=== PATIENT | female | born 1980 | race Caucasian/White ===

== ENCOUNTER 2020-10-03 21:22 | Emergency (ER) | payer MEDICAID, SELFPAY ==
[2020-10-03 21:25] VITALS: BP 131/89; PULSE 91; RESP 20; TEMP 37.1; O2SAT 97
--- NOTE | 2020-10-03 21:34 | ED.GENADUL_ITS ---
Discharge Plan Disposition Patient Disposition: OTHER Condition: Stable Discharge Details Clinical Impression: Anxiety Primary Care Provider: Samia Florence ED Provider: Foster Ernst Home Meds and New Rx's Prescriptions: No Action medroxyprogesterone [Depo-Provera] 150 MG/1 ML syringe 150 mg IM q 12 wks RF: 0 polyethylene glycol 3350 [Miralax] 527 GM powder 17 g PO DAILY Qty: 527 RF: 0 cholecalciferol (vitamin D3) [Vitamin D3] 400 UNIT tablet 400 unit PO DAILY RF: 0 adalimumab [Humira Pen Tymv-Hcvidq-Ccae HS] 40 MG/0.8 ML pen injector kit 40 mg SQ q other wk RF: 0 Medical Decision Making 40 yo female with hx of anxiety and depression comes in with Police after she was arrested and had a court order to be evaluated by mental health before going to a women's correction per PD. She arrives stable, crying but answering questions appropriately with clear speech and has normal gait. She denies any specific thoughts of self harm but states if she can't be with her she doesn't want to live anymore. Denies taking or attempting to harm herself. Denies thoughts of harming others and no visual or auditory hallucinations per history and on exam doesn't have any. No complaints of any physical pain, no fevers, no dyspnea, no focal neuro deficits, PERRL, CN II-XII intact. Do not feel she has underlying medical cause for her symptoms such as endocrine or infectious etiology will have mental health evaluate Charlene from mental health called and patient should not be here she was supposed to go to [facility] as we do not provide these mental health evaluations. Troopers are going to transport her to their facility for evaluation. I did speak with their ED and they are already expecting the patient and were notified before she arrived here. Differential Diagnosis Differential Diagnosis: anxiety, depression, situational anxiety HPI General Mode of arrival: ambulatory (with PD) . Date/Time Provider Initiated Documentation: 10/03/20 21:24 . Limitations to Documentation: no limitations . Information obtained by: patient . History of Present Illness 40 year old F presents to the emergency department with the chief complaint of anxious, Patient started experiencing this year(s) (2) and it has been constant. No relieving factors improve symptom(s), No exacerbating factors reported . Related Data Home Medications Medication Instructions Recorded Confirmed adalimumab [Humira Psoriasis] 40 mg SQ q other wk 02/07/15 cholecalciferol (vitamin D3) 400 unit PO DAILY 02/07/15 [Vitamin D3] medroxyprogesterone [Depo-Provera] 150 mg IM q 12 wks 02/07/15 polyethylene glycol 3350 [Miralax] 17 g PO DAILY #527 gm 02/07/15 Allergies Allergy/AdvReac Type Severity Reaction Status Date / Time acetaminophen [From Vicodin] Allergy vomiting Unverified 03/01/15 14:32 hydrocodone bitartrate Allergy vomiting Unverified 03/01/15 14:32 [From Vicodin] Latex, Natural Rubber Allergy rash Unverified 03/01/15 14:32 Review of Systems All systems reviewed & are unremarkable except as noted in HPI and below Constitutional Constitutional: Denies chills, Denies fever(s) and Denies weakness Cardiovascular Cardiovascular: Denies chest pain and Denies dyspnea Respiratory Respiratory: Denies cough and Denies dyspnea Gastrointestinal Gastrointestinal: Denies abdominal pain, Denies nausea and Denies vomiting Musculoskeletal Musculoskeletal: Denies joint swelling Neurologic Neurologic: Denies weakness [facility] Medical History (Updated 10/03/20 @ 22:05 by Foster Ernst MD) Adolescent depression Arm pain, left shoots down arm when lifts arm over head. no pain with passive ROM. Asthma CD (Crohn's disease) Dx 2010. Stable Chronic pelvic pain in female since age 17. s/p laparoscopies x2. Neg pelvic u/s and Abd CT 12/2014 Constipation Rx with Polyethylene Glycol Dry cough occurs when she lifts L arm over head. 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 2008 LGSIL. Other polyp of sinus Dx on CT of sinus - 2007 PID (acute pelvic inflammatory disease) 1999. Hx of + Chlamydia 04/[address] Not[address] on CT of abd 2014. Not symptomatic. Surgical History (Updated 03/12/18 @ 14:36 by [facility] [place]) bunionectomy 05/2011 Dr. Bailey Cholecystectomy 2008 Colonoscopy - IV Sedation 2008. Nl. Diagnostic Laproscopy 2000 2003 2010 EGD - IV Sedation Gastric ulcer. H Pylori 10/[address] Verduzco. Dx Chron's Family History Mother Mental disorder IBS (irritable bowel syndrome) Father Nephrolithiasis Sister Nephrolithiasis Asthma Maternal Aunt Personal history of malignant neoplasm Other Myocardial infarction Social History Smoking risk assessment performed?: No Exam Const General: anxious Orientation: alert HENMT Head: normal to inspection Ears: external ears normal General nose exam: external nose normal Mouth: moist mucous membranes Eyes General: appearance normal, both eyes and all related structures Neck Neck: normal visual inspection Resp Effort & Inspection: normal respiratory effort and able to speak in complete sentences Cardio Rate: regular rate Skin General skin exam: no rashes or lesions noted Neuro General: patient alert and patient oriented x3 Extrem General: normal to inspection Psych Speech and Movement: not agitated
[2020-10-03 22:04] LABS: Bilirubin Small (Negative); Blood Trace-intact (Negative); Clarity Cloudy (Clear); Glucose Negative (Negative); Ketones >=160 mg/dL (Negative); Leukocyte Esterase Trace (Negative); Nitrite Negative (Negative); Specific Gravity >= 1.030 (1.005-1.025); Urobilinogen 0.2 EU/dL (Up TO 0.2); pH 6.5 (5-8)
[2020-10-03 22:15] LABS: Bacteria Moderate HPF (Negative); C & S Indicated? No/Sq. Contamination; Epithelial Cells Many HPF (Negative)
[2020-10-03 22:17] LABS: *AMPHETAMINES SCREEN URINE Negative (Negative); *BARBITURATES SCREEN URINE Negative (Negative); *BENZODIAZEPINES SCREEN URINE Negative (Negative); Cannabinoids THC Positive (Negative); Cocaine Screen,Urine Negative (Negative); METHADONE URINE SCREEN Negative (Negative); OPIATES URINE SCREEN Negative (Negative)
[2020-10-03 22:18] LABS: Tricyclic Antidepressants Negative (Negative)
== END 2020-10-03 22:21 | disposition other institution (70) ==
PROVIDERS: Emergency Provider Emergency Medicine; PCP Nurse Practitioner Family
DX: F41.8 Other specified anxiety disorders (principal)
CPT/HCPCS: 80307; 81025; 99285; 81003; 81015; 99283

== ENCOUNTER 2023-10-05 10:47 | Emergency (ER) | payer MEDICAID, SELFPAY ==
[2023-10-05 10:49] VITALS: BP 144/129; PULSE 96; RESP 16; TEMP 36.7; O2SAT 100
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
--- NOTE | 2023-10-05 12:00 | DI.RAD_ITS ---
Exam(s) XR CHEST 2V PA LATERAL EXAM: XR CHEST 2V PA LATERAL CLINICAL HISTORY: Shortness of breath TECHNIQUE: 2D digital imaging was performed of the chest. Two images were obtained. PA and lateral views were obtained. COMPARISON: No exams were available for comparison FINDINGS: MEDIASTINUM: Normal. HEART: Normal. PULMONARY VASCULATURE: Normal. LUNGS: Clear. PLEURAL SPACE: No pleural effusion or pneumothorax. BONE:Within normal limits for the patient's age. There is a marked right convex thoracic scoliosis. OTHER FINDINGS:Normal. IMPRESSION: No acute pulmonary findings. DATA REPOSITORY: RADIATION DOSE DELIVERED:
[2023-10-05] MEDS: Acetaminophen 500 MG TAB 650 MG PO (12:20)
[2023-10-05] MEDS: Ibuprofen 400 MG TAB PO (12:21)
[2023-10-05] MEDS: Amoxicillin 875/Clav. 125 TAB PO (12:21)
[2023-10-05] MEDS: Benzonatate 100 MG CAP PO (12:21)
[2023-10-05 12:58] VITALS: BP 109/88; PULSE 66; RESP 16; O2SAT 100
--- NOTE | 2023-10-05 13:13 | DI.VRAD_ITS ---
PROCEDURE INFORMATION: Exam: XR Chest Exam date and time: 10/05/2023 12:45 PM Age: 43 years old Clinical indication: Cough TECHNIQUE: Imaging protocol: Radiologic exam of the chest. Views: 2 views. COMPARISON: No relevant prior studies available. FINDINGS: Lungs: Densities over mid to lower thorax bilaterally may be due to overlap, superimposed densities/tissues. No focal infiltrates seen of visualized portions of lungs. Pleural spaces: No pneumothorax and no pleural effusion seen of visualized portions thorax. Lower most portions of costophrenic angles not completely included on the PA view, left greater than right. Heart/Mediastinum: Heart size appears within normal. Bones/joints: Curvature, degenerative changes spine. Other findings: Linear densities project over abdomen on lateral view, partially included. IMPRESSION: No acute findings seen of visualized portions chest. Please see body of report. Dictated and Authenticated by: Lion Young MD. Ordering:JORGE L Lozano MD
[2023-10-05] MEDS: Lidocaine 5% Patch 1 PATCH TP (13:35)
== END 2023-10-05 13:37 | disposition home or self-care (01) ==
PROVIDERS: Emergency Provider Emergency Medicine; PCP Nurse Practitioner Family
DX: J01.90 Acute sinusitis, unspecified (principal)
CPT/HCPCS: 99283; 71046

== ENCOUNTER 2023-11-04 16:21 | Emergency (ER) | payer MEDICAID, SELFPAY ==
[2023-11-04 16:22] VITALS: BP 159/105; PULSE 117; RESP 18; TEMP 37.1; O2SAT 99
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
[2023-11-04 17:07] LABS: Bilirubin Negative (Negative); Blood Trace-lysed (Negative); Clarity Clear (Clear); Glucose Negative (Negative); Ketones 15 mg/dL (Negative); Leukocyte Esterase Small (Negative); Nitrite Negative (Negative); Specific Gravity 1.015 (1.005-1.025); Urobilinogen 0.2 mg/dL (Up to 0.2); pH 6.5 (5-8)
[2023-11-04 17:14] LABS: Abs Immature Grans 0.02 10^3/uL (0.0-0.06); Absolute Lymphocyte Count 2.44 10^3/uL (1.2-3.4); Absolute Monocyte Count 0.69 10^3/uL (0.1-0.8); Basophils % 0.3 %; Eosinophils % 0.3 %; HCT 42.1 % (36.0-46.0); HGB 14.3 g/dL (11.2-15.7); Immature Grans % 0.2 %; Lymphocytes % 21.2 %; MCH 31.2 pg (27.0-33.0); MCV 92 fL (80-95); MPV 10.5 fL (8.0-11.0); Platelet Count 178 10^3/uL (130-400); RBC 4.58 10^6/uL (3.93-5.22); RDW 13.2 % (11.7-14.6); RDW-SD 44.3 fL; WBC 11.53 10^3/uL (4.4-10.8)
[2023-11-04 17:18] LABS: Absolute Basophil Count 0.03 10^3/uL (0.0-0.2); Absolute Eosinophil Count 0.03 10^3/uL (0.0-0.7)
[2023-11-04 17:21] VITALS: BP 159/105; PULSE 117; RESP 18; TEMP 37.1; O2SAT 99
[2023-11-04] MEDS: Ketorolac 15 MG/ML VIAL IVP (17:21)
[2023-11-04] MEDS: ACETAMINOPHEN 1,000 MG/100 ML BTL 400 MG IVPB (17:21)
[2023-11-04] MEDS: Normal Saline 1,000 ML 1000 ML IV (17:21)
[2023-11-04 17:26] LABS: Bacteria Few HPF (Negative); C & S Indicated? No/Sq. Contamination; Casts Negative LPF (Negative); Crystals Negative HPF (Negative); Epithelial Cells Moderate HPF (Negative); Mucus Trace (Negative); RBC 0-2 HPF (0-2)
[2023-11-04 17:30] LABS: ALT 24 U/L (14-59); AST 11 U/L (15-37); Albumin 4.6 g/dL (3.4-5.0); Alkaline Phosphatase 85 U/L (46-116); Anion Gap 11.2 mmol/L (3-11); BUN 8 mg/dL (7-18); Bilirubin, Total 0.8 mg/dL (0.2-1.0); CO2 29.8 mmol/L (21.0-32.0); CREATININE 0.8 mg/dL (0.55-1.02); Calcium 9.3 mg/dL (8.5-10.1); Chloride 104 mmol/L (98-107); Estimated GFR 94.28 (mL/min/1.73m2); Glucose 87 mg/dL (74-106); Sodium 145 mmol/L (136-145)
[2023-11-04 17:31] LABS: Potassium 2.9 mmol/L (3.5-5.1)
--- NOTE | 2023-11-04 17:36 | W.EDPROG ---
Date of service: 11/04/23 Time of Service: 17:37 Medical Decision Making Patient care accepted in signout. She is a 43-year-old female presenting with right thigh infection. Concern for cellulitis. She is immune compromised so lab work and CT imaging of the area have been obtained. The CT scan did not demonstrate any deep space infection or gas within the tissues. It does support the diagnosis of cellulitis. Lab work reviewed. She does have a mild leukocytosis of only 11.5. She also has a slight shift in her neutrophils. Her CRP is very slightly elevated. Her procalcitonin is negative. Given this constellation of symptoms, I do think that the patient should be given a trial of oral antibiotics at home. I will send clindamycin to the pharmacy. Strict return precautions advised. The patient was also noted to be hypokalemic, so potassium was also sent to the pharmacy for her to take for a few days. Recommend close follow-up with PCP for reevaluation of symptoms. Medical Records Medical records reviewed: Yes I reviewed the patient's medical records. Lab Data Lab results reviewed: Yes I reviewed the patient's lab results. Quality:[facility] Health Related Social Needs: No Data to Display Sign Out Sign Out Data: Sign Out Comment: right prox groin cellulitis, immunocompromised; labs cultures drawn; IV clinda started; pending labs and CT imaging to assess for deep space infection; if benign CT and improved clinically, consider home on po clinda Last updated by Win Haynes MD at 11/04/23 17:17 Discharge Plan Disposition Patient Disposition: Home Condition: Stable Discharge Details Clinical Impression: Cellulitis, Hypokalemia Primary Care Provider: Samia Florence ED Provider: Ewa Palmer Home Meds and New Rx's Prescriptions: New clindamycin HCl 150 mg capsule 450 mg PO TID 7 Days Qty: 63 0RF potassium chloride 20 mEq packet 20 meq PO BID 3 Days Qty: 6 0RF No Action polyethylene glycol 3350 [Miralax] 527 GM powder 17 g PO DAILY Qty: 527 cholecalciferol (vitamin D3) [Vitamin D3] 400 UNIT tablet 400 unit PO DAILY Humira Pen Vdhu-Rigmut-Yrre HS 40 MG/0.8 ML pen injector kit 40 mg SQ q other wk budesonide-formoterol 80-4.5 mcg/actuation HFA aerosol inhaler 2 puff inhalation BID Qty: 10.2 0RF cetirizine 10 mg tablet 10 mg PO DAILY PRNQty: 7 0RF lidocaine [Lidoderm] 5 % adhesive patch,medicated 1 patch topical DAILY Qty: 15 0RF Rx Instructions: leave on most painful area for up to 12 hrs hydroxyzine HCl 10 mg tablet 10 mg PO TID-QID PRN Discharge Instructions Instructions: Cellulitis (ED) Additional Instructions: Please take antibiotics as prescribed Monitor your area of infection. If it significantly worsens, you develop fever increased pain or otherwise not feeling well, please return to the emergency department. Follow-up with your primary care provider for reevaluation and monitoring of symptoms.
[2023-11-04] MEDS: Omnipaque 350 MG/ML 100 ML BTL IJ (17:40)
[2023-11-04] MEDS: Normal Saline - Diluent 50 ML VIAL IJ (17:40)
[2023-11-04] MEDS: CLINDAMYCIN 600 MG/50 ML BAG 100 MG IVPB (17:45)
--- NOTE | 2023-11-04 18:12 | DI.CT_ITS ---
Exam(s) CT LOWER EXTREMITY RT W EXAM: CT LOWER EXTREMITY RT W CLINICAL HISTORY: R prox medial thigh cellulitis, immunocompromised. TECHNIQUE: Imaging Protocol: Axial computed tomography images with coronal and sagittal reformatted images were created and reviewed. CONTRAST MATERIAL: Intravenous: Omnipaque 350. COMPARISON: No exams were available for comparison FINDINGS: Bones: The osseous structures and articular surfaces are intact. Bony alignment is satisfactory. N o cellulitic or osteomyelitic changes are identified. There is no evidence of joint space narrowing or cystic degeneration seen. No lytic or sclerotic lesions are identified. Soft Tissues: There is inflammation seen in the subcutaneous tissues in the right inguinal region in the medial upper right thigh. No focal fluid collection is seen to suggest an abscess. No soft tiss ue gas is present. Enhancement: No enhancing masses are seen. IMPRESSION: 1. Cellulitis in the soft tissues of the right inguinal region and upper right medial thigh. 2. No abscess or soft tissue gas is present. 3. The bones are unremarkable. No findings to suggest osteomyelitis are seen. RADIATION DOSE DELIVERED: 351.31mGy.cm Total DLP 351.31mGy.cm Total DLP DATA REPOSITORY: All CT scans at this facility are submitted to the National Radiology Data Registry (NRDR) Dose Index Registry (DIR) with the [employer] ([employer]). RADIATION OPTIMIZATION: All CT scans at this facility use at least one of these dose optimization te chniques: automated exposure control; mA and/or kV adjustment per patient size (includes targeted exa ms where dose is matched to clinical indication); or iterative reconstruction.
[2023-11-04 18:33] LABS: ESR 6 mm/hr (0-20)
[2023-11-04 18:40] LABS: C-Reactive Protein 0.89 mg/dL (<or=0.5)
[2023-11-04 19:18] LABS: Procalcitonin < 0.1 ng/mL
[2023-11-04 20:02] VITALS: BP 131/79; PULSE 55; O2SAT 98
--- NOTE | 2023-11-05 22:20 | W.EDPROG ---
Date of service: 11/05/23 Time of Service: 22:20 Medical Decision Making notified of blood culture results. attempted to call patient, but no answer. voicemail left Quality:[facility] Health Related Social Needs: No Data to Display Sign Out Sign Out Data: Sign Out Comment: right prox groin cellulitis, immunocompromised; labs cultures drawn; IV clinda started; pending labs and CT imaging to assess for deep space infection; if benign CT and improved clinically, consider home on po clinda Last updated by Win Haynes MD at 11/04/23 17:17 Discharge Plan Disposition Patient Disposition: Home Condition: Stable Discharge Details Clinical Impression: Cellulitis, Hypokalemia Primary Care Provider: Samia Florence ED Provider: Ewa Palmer Home Meds and New Rx's Prescriptions: New clindamycin HCl 150 mg capsule 450 mg PO TID 7 Days Qty: 63 0RF potassium chloride 20 mEq packet 20 meq PO BID 3 Days Qty: 6 0RF No Action polyethylene glycol 3350 [Miralax] 527 GM powder 17 g PO DAILY Qty: 527 cholecalciferol (vitamin D3) [Vitamin D3] 400 UNIT tablet 400 unit PO DAILY Humira Pen Ytbw-Vphlup-Jzcu HS 40 MG/0.8 ML pen injector kit 40 mg SQ q other wk budesonide-formoterol 80-4.5 mcg/actuation HFA aerosol inhaler 2 puff inhalation BID Qty: 10.2 0RF cetirizine 10 mg tablet 10 mg PO DAILY PRNQty: 7 0RF lidocaine [Lidoderm] 5 % adhesive patch,medicated 1 patch topical DAILY Qty: 15 0RF Rx Instructions: leave on most painful area for up to 12 hrs hydroxyzine HCl 10 mg tablet 10 mg PO TID-QID PRN Discharge Instructions Instructions: Cellulitis (ED) Additional Instructions: Please take antibiotics as prescribed Monitor your area of infection. If it significantly worsens, you develop fever increased pain or otherwise not feeling well, please return to the emergency department. Follow-up with your primary care provider for reevaluation and monitoring of symptoms. Discharge Data Discharge Date/Time-TO BE ENTERED AT DEPARTURE: 11/04/23 20:03
--- NOTE | 2023-11-09 09:12 | W.ED.FU ---
Date of service: 11/09/23 Time of Service: 09:12 Follow Up Plan: This patient had positive blood cultures return. I called the patient. She did not answer. There was a voicemail but it was not set up with her name. I left a generic message at the number requesting call back at the emergency department.
--- NOTE | 2023-12-15 10:27 | NUR.NOTE ---
Patient called stating that she was here in October, Dr Palmer prescribed clindamycin for a cellulitis for one month for her. Since stopping the medication the leg spot is gone and has a spot on her armpit. She is asking for more antibiotics. Consulted with Katie Lopez and told the patient that she needs to go to PCP, Urgent Care or come back to ED for re-evaluation. We are unable to re-prescribe a medication. Seen 11/04/2023. [phone]. Nursing Note:
== END 2023-11-04 20:03 | disposition home or self-care (01) ==
PROVIDERS: Emergency Medicine; Emergency Provider Emergency Medicine; PCP Nurse Practitioner Family
DX: L03.115 Cellulitis of right lower limb (principal); K50.90 Crohn's disease, unspecified, without complications; F17.290 Nicotine dependence, other tobacco product, uncomplicated; Z86.14 Personal history of Methicillin resistant Staphylococcus aureus infection; Z79.620 Long term (current) use of immunosuppressive biologic
CPT/HCPCS: 00123; 36415; 80053; 81025; 84145; 85652; 87040; 87077; 96361; 96365; 96375; 99285; 73701; 81003; 81015; 85025; 86140; 87186; J0131; J0737; J1885; J3490

== ENCOUNTER 2025-04-14 08:11 | Emergency (ER) | payer MEDICAID, SELFPAY ==
[2025-04-14 08:16] VITALS: BP 137/98; PULSE 72; RESP 18; TEMP 36.6; O2SAT 98
[2025-04-14 08:23] VITALS: BP 137/98; PULSE 72; RESP 18; TEMP 36.6; O2SAT 98
[2025-04-14 09:06] VITALS: RESP 16
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
== END 2025-04-14 09:08 | disposition home or self-care (01) ==
LOC: ER 08:42
PROVIDERS: Emergency Provider Physician Assistant; PCP Nurse Practitioner Family
DX: L03.211 Cellulitis of face (principal)
CPT/HCPCS: 99283 ×2